=== PATIENT | male | born 1955 | race African-American/Black ===

== ENCOUNTER → 2016-10-09 | Outpatient (CLI) | payer BC ==
[~2016-10-09] MED LIST: ATENOLOL; BENAZEPRIL; GABAPENTIN; LIPITOR; MAXIDE; METF10002 PO
== END | disposition home or self-care (01) ==
LOC: NM 07:18
PROVIDERS: ATTEND Internal Medicine Endocrinology, Diabetes & Metabolism
DX: E05.90 Thyrotoxicosis, unspecified without thyrotoxic crisis or storm (principal)
CPT/HCPCS: 78014; A9516

== ENCOUNTER 2023-09-18 14:48 | Emergency (ER) | payer BC ==
[~2023-09-18] VITALS: Ht 190.5 cm; Wt 79.0 kg
[~2023-09-18 14:48] MED LIST changes: +METF-416 PO; -METF10002 PO
[2023-09-18 14:57] VITALS: O2SAT 100
[2023-09-18 15:36] LABS: HEMATOCRIT. 46.1 % (42.0-52.0); HEMOGLOBIN. 15.5 g/dL (14.0-18.0); MEAN CORPUSCULAR HEMOGLOBIN 28.4 pg (28.0-32.0); MEAN CORPUSCULAR HGB CONC 33.6 g/dL (31.0-37.0); MEAN CORPUSCULAR VOLUME 84.6 fL (80.0-94.0); MEAN PLATELET VOLUME 7.8 fl (7.4-10.4); PLATELET 377 x1000/uL (130-400); RED BLOOD CELL COUNT 5.45 mill/uL (4.7-6.1); RED CELL DISTRIBUTION WIDTH 16.5 % (11.6-14.6); WHITE BLOOD COUNT 13.1 x1000/uL (4.5-11.0)
[2023-09-18 15:39] LABS: DIFFERENTIAL COMMENT 1
[2023-09-18 16:01] LABS: BILIRUBIN TOTAL 0.7 mg/dL (0.1-1.0); CALCIUM 9.7 mg/dL (8.7-10.4); CARBON DIOXIDE 26 mEq/L (21-32); CHLORIDE 100 mEq/L (98-107); CREATININE 1.2 mg/dL (0.6-1.3); GLUCOSE 151 mg/dL (70-105); POTASSIUM 3.9 mEq/L (3.5-5.1); SODIUM 137 mEq/L (136-145); UREA NITROGEN BLOOD 23 mg/dL (9-23)
[2023-09-18 16:02] LABS: PROTEIN TOTAL 8.9 g/dL (6.0-8.3)
[2023-09-18] MEDS: ONDANSETRON HCL 4MG/2ML INJ IV STA (16:02)
[2023-09-18 16:03] LABS: ALANINE AMINOTRANSFERASE 12 IU/L (10-49); ASPARTATE AMINOTRANSFERASE 15 IU/L (<34)
[2023-09-18 18:08] LABS: HEMATOCRIT 48.1 % (42.0-52.0); HEMOGLOBIN 15.8 g/dL (14.0-18.0)
[2023-09-18] MEDS: SODIUM CHLORIDE 0.9% 1,000 ML IV ONE (18:15)
[2023-09-18] MEDS: PANTOPRAZOLE SODIUM 40 MG/VIAL IV ONE (18:15)
[2023-09-18 19:18] LABS: CLARITY URINE CLEAR (CLEAR); COLOR URINE DARK YELLOW (YELLOW); GLUCOSE URINE 2+ (NEGATIVE); KETONES URINE 1+ (NEGATIVE); LEUKOCYTE ESTERASE URINE NEGATIVE (NEGATIVE); NITRITE URINE NEGATIVE (NEGATIVE); OCCULT BLOOD URINE NEGATIVE (NEGATIVE); PH URINE 5.5 (4.5-8.0); PROTEIN URINE 2+ (NEGATIVE); SPECIFIC GRAVITY URINE 1.027 (1.005-1.030)
[2023-09-18 19:22] LABS: ANISOCYTOSIS 1+; PLATELET ESTIMATE NORMAL
[2023-09-18 19:50] LABS: BACTERIA URINE 1+; RBC URINE NONE SEEN /hpf (0-2); SQUAMOUS EPITHELIAL CELL URINE RARE /lpf (RARE/1+); WBC URINE 0-2 /hpf (0-2)
[2023-09-18] MEDS ORDERED: OMEP40CA20 MT (20:53)
[2023-09-18] MEDS ORDERED: POLY119P2 MT (20:54)
[2023-09-18 21:20] VITALS: BP 187/91; PULSE 87; RESP 18; TEMP 98
== END 2023-09-18 21:27 | disposition home or self-care (01) ==
LOC: ER 14:48
DX: Z79.899 Other long term (current) drug therapy (principal); I10 Essential (primary) hypertension; E11.9 Type 2 diabetes mellitus without complications; Z98.890 Other specified postprocedural states; N28.1 Cyst of kidney, acquired
CPT/HCPCS: 80053; 81003; 83690; 85014; 85018; 85025; 36415; 74176; 76770; 96361; 96374; 96375; 99285; J2405; C9113; J7030; Z7610 ×3